=== PATIENT | male | born 1985 | race Asian ===

== ENCOUNTER 2017-11-10 14:26 | Emergency (ER) | payer SELFPAY ==
[~2017-11-10] VITALS: Ht 165.1 cm; Wt 63.5 kg
[2017-11-10 14:26] VITALS: BP 146/90
[2017-11-10] MEDS ORDERED: LIDOCAINE 1%-EPI 1:100,000 20 ML VIAL ONE (14:44)
[2017-11-10] MEDS ORDERED: TDAP [DIPH/PERTUSSIS/TET] 0.5 ML VIAL IM ONE ×2 (14:46→15:00)
[2017-11-10] MEDS ORDERED: LIDOCAINE 1%-EPI 1:100,000 20 ML VIAL TP ONE (15:00)
--- NOTE | 2017-11-10 15:17 | NUR ---
LAC REPAIR DONE 8 SUTURES NOTED. WOUNC CARE PROVIDED. D/C HOME IN STABLE CONDITION.
== END 2017-11-10 15:21 | disposition home or self-care (01) ==
LOC: ER 14:30
DX: S61.511A Laceration without foreign body of right wrist, initial encounter (principal); I10 Essential (primary) hypertension; F10.10 Alcohol abuse, uncomplicated; W31.89XA Contact with other specified machinery, initial encounter; Y93.89 Activity, other specified; Y92.89 Other specified places as the place of occurrence of the external cause; Y99.8 Other external cause status
CPT/HCPCS: 90715; A4606; A6402; A6403; J3490; Z7610

== ENCOUNTER 2017-11-10 22:05 | Emergency (ER) | payer SELFPAY ==
[~2017-11-10] VITALS: Ht 165.1 cm; Wt 63.5 kg
--- NOTE | 2017-11-10 22:05 | NUR ---
BIBSELF C/O STITCHES ON RIGHT WRIST NOTED BLEEDING. WAS HERE 4 HRS AGO. WILL CONTINUE TO MONITOR FOR ANY CHANGES
--- NOTE | 2017-11-10 23:20 | NUR ---
DR. DOSS AT BEDSIDE FOR EVAL.
[2017-11-10] MEDS ORDERED: LIDOCAINE /MPF 1% VIAL 5 ML VIAL ONE (23:23)
--- NOTE | 2017-11-10 23:45 | NUR ---
DR. DOSS AT BEDSIDE FOR LAC/STITCH REPAIR.
[2017-11-11 00:15] VITALS: BP 136/89
== END 2017-11-11 00:33 | disposition home or self-care (01) ==
LOC: ER 22:12
DX: T81.30XA Disruption of wound, unspecified, initial encounter (principal); S61.511A Laceration without foreign body of right wrist, initial encounter; I10 Essential (primary) hypertension; F10.10 Alcohol abuse, uncomplicated; W31.89XA Contact with other specified machinery, initial encounter; Y93.89 Activity, other specified; Y92.89 Other specified places as the place of occurrence of the external cause; Y99.8 Other external cause status
CPT/HCPCS: A4606; A6402; A6403; J3490; Z7610

== ENCOUNTER 2017-11-17 07:58 | Emergency (ER) | payer MEDICAID ==
[~2017-11-17] VITALS: Ht 165.1 cm; Wt 68.0 kg
[2017-11-17 08:03] VITALS: BP 139/74
== END 2017-11-17 08:20 | disposition home or self-care (01) ==
LOC: ER 08:00
DX: S61.511D Laceration without foreign body of right wrist, subsequent encounter (principal); X58.XXXD Exposure to other specified factors, subsequent encounter; I10 Essential (primary) hypertension
CPT/HCPCS: A4606; Z7502; Z7610